=== PATIENT | female | born 1995 | race Asian ===

== ENCOUNTER 2021-09-05 12:32 | Emergency (ER) | payer OTHER ==
[~2021-09-05] VITALS: Ht 165.1 cm; Wt 99.8 kg
[2021-09-05 12:38] VITALS: BP 143/103; TEMP 98.4
== END 2021-09-05 13:38 | disposition home or self-care (01) ==
LOC: ED 12:32
DX: S91.332A Puncture wound without foreign body, left foot, initial encounter (principal); W45.0XXA Nail entering through skin, initial encounter; Y92.89 Other specified places as the place of occurrence of the external cause
CPT/HCPCS: 90715; 96372; 99283